=== PATIENT | female | born 2000 | race Caucasian/White ===

== ENCOUNTER 2021-02-04 09:44 | Outpatient (CLI) | payer MEDICAID ==
[~2021-02-04] VITALS: Ht 165.1 cm; Wt 63.6 kg
== END 2021-02-04 10:51 | disposition home or self-care (01) ==
LOC: LDOP 09:44
PROVIDERS: ATTEND Obstetrics & Gynecology
DX: O26.892 Other specified pregnancy related conditions, second trimester (principal); R10.9 Unspecified abdominal pain; Z3A.27 27 weeks gestation of pregnancy